=== PATIENT | female | born 1995 | race American Indian/Alaskan Native ===

== ENCOUNTER 2019-07-10 10:55 | Emergency (ER) | payer SELFPAY ==
[2019-07-10 11:06] VITALS: BP 152/101
[2019-07-10] MEDS ORDERED: dexAMETHasone 20 MG/5 ML VIAL IM ONE (13:29)
--- NOTE | 2019-07-10 13:29 | Emergency Department Report ---
ED Rash HPI - HPI Chief Complaint: Skin Rash Stated Complaint: EYES/NOSE RASH BREAKOUT Time Seen by Provider: 07/10/19 13:09 Duration: 5 Days Location: Head (face), Abdomen, Upper Extremities Suspected Cause: Unknown Rash Symptoms: Yes Itching, No Facial Swelling, No Tongue/Oral Swelling, No Breathing Difficulties, No Choking Sensation, No Wheezing/Dyspnea, No Peeling, No Blistering, No Fever, No Lightheaded, No Malaise, No Myalgias Other History: This is a 24-year-old -[place] female that presents to the emergency room with pruritic rash to bilateral hands, lower abdomen, and around both eyes for 5 days. Patient states she is using triamcinolone and Benadryl with minimal improvement of symptoms. Past medical history of eczema. Patient also complains of swelling, warmth, and pain to left breast for 3 days. Patient states she is breast-feeding. A vaginal delivery 4 months ago. She denies discharge from breast, numbness or tingling, fever, chills, nausea or vomiting. ED Review of Systems ROS: Stated complaint: EYES/NOSE RASH BREAKOUT Other details as noted in HPI Constitutional: denies: chills, fever Respiratory: denies: cough, shortness of breath, wheezing Cardiovascular: denies: chest pain, palpitations Genitourinary: denies: urgency, dysuria, discharge Musculoskeletal: denies: back pain, joint swelling, arthralgia Skin: rash (bilateral hands, around both eyes, and abdomen), pruritus, other (left breast swollen and warm ). denies: lesions, change in color, change in hair/nails Neurological: denies: headache, weakness, paresthesias Psychiatric: denies: anxiety, depression Hematological/Lymphatic: denies: easy bleeding, easy bruising ED Past Medical Hx - Past Medical History Previous Medical History?: No - Surgical History Past Surgical History?: No - Social History Smoking Status: Never Smoker Substance Use Type: None - Medications Home Medications: Home Medications Medication Instructions Recorded Confirmed Last Taken Type Clindamycin [Clindamycin CAP] 300 mg PO Q8H 10 Days #30 cap 07/10/19 Unknown Rx Prednisone [predniSONE 10 mg 10 mg PO .TAPER #1 tab.ds.pk 07/10/19 Unknown Rx (6-Day Pack, 21 Tabs)] Rash Exam - Exam General: Vital signs noted. No distress. Alert and acting appropriately. HEENT: No Periorbital Edema, No Conjuctival Injection, No Chemosis, No Perioral Edema, No Tongue Edema, No Uvular Edema, No Compromised Airway, No Drooling Lungs: Yes Good Air Exchange (Normal Breath Sounds), No Wheezes, No Ronchi, No Stridor, No Cough, No Labored Respirations, No Retractions, No Use of Accessory Muscles, No Other Abnormal Lung Sounds Heart: Yes Regular, No Murmur Skin: Yes Maculopapular Rash (around both eyes, blanchable, nontender), Yes Tenderness, Yes Erythema (both hands scaling erythematous rash, tenderness, swelling. Scaling erythematous rash to lower abdomen, surrounding cellulitis, tenderness), Yes Other (erythematous region on the left breast and 5:00, tenderness, warmth to palpation), No Urticarial Rash, No Morbilliform rash, No Bulla(e), No Excoriations, No Weeping, No Edema, No Encrustations ED Course Vital Signs 07/10/19 11:04 Temperature 98.1 F Pulse Rate 76 Respiratory 17 Rate Blood Pressure 152/101 O2 Sat by Pulse 99 Oximetry ED Medical Decision Making - Medical Decision Making Patient was examined by me. Patient is nontoxic appearing and stable. Vitals a re stable. The left breast erythematous, warm to palpation and consistent with mastitis. There is a erythematous scaly rash to bilateral hands, lower abdomen, and around both eyes. This is presumed to be a topic dermatitis with cellulitis. Start prednisone and clindamycin. [facility] Instructed to follow-up with [employer] [facility] regarding the left mastitis. Given dexamethasone while in the ER. Instructed to take Tylenol or ibuprofen for pain. Patient discharged home in stable condition. Critical care attestation.: If time is entered above; I have spent that time in minutes in the direct care of this critically ill patient, excluding procedure time. ED Disposition Clinical Impression: Pruritic erythematous rash, Cellulitis of hand, Mastitis, left, acute Atopic dermatitis Qualifiers: Atopic dermatitis type: intrinsic Qualified Code(s): L20.84 - Intrinsic (allergic) eczema Disposition: TO HOME OR SELFCARE Is pt being admited?: No Condition: Stable Instructions: Eczema (ED), Mastitis (ED) Additional Instructions: It is okay to continue breast-feeding or pumping breast milk. Apply warm compresses and massage left breast. Wear supportive bra. Complete full course of antibiotics as prescribed. Follow-up with your [employer]. I have also provided a list of dermatologists for follow-up regarding a topic dermatitis/eczema. Prescriptions: Clindamycin [Clindamycin CAP] 300 mg PO Q8H 10 Days #30 cap Prednisone [predniSONE 10 mg (6-Day Pack, 21 Tabs)] 10 mg PO .TAPER #1 tab.ds.pk Referrals: VANESSA WALDEN MD [Referring] - 3-5 Days [facility] [Provider Group] - 3-5 Days [facility] [Outside] - 3-5 Days [facility] [Outside] - 3-5 Days Forms: Work/School Release Form(ED) Time of Disposition: 14:32
== END 2019-07-10 14:47 | disposition home or self-care (01) ==
LOC: ED 10:55
DX: L20.9 Atopic dermatitis, unspecified (principal); N61.0 Mastitis without abscess; L03.114 Cellulitis of left upper limb; L03.113 Cellulitis of right upper limb
CPT/HCPCS: 96372; 99282; J1100